=== PATIENT | male | born 1965 | race African-American/Black ===

== ENCOUNTER 2017-05-24 15:11 | Emergency (ER) | payer OTHER ==
[~2017-05-24] VITALS: Ht 185.4 cm; Wt 104.3 kg
--- NOTE | ~2017-05-24 | EKG ---
[place] [address] [place] [address] ELECTROCARDIOGRAM REPORT Name: VOLODYMYR LAMBERT Room #: DEP PATRIC Gonzalez#: [id number] Admission: 05/24/17 Attend Phys: Discharge: 05/24/17 Date of : 67 Report #: [id number] THIS REPORT FOR: //name// [facility] ED Test Date: 2017-05-24 Test Time: 15:59:00 Pat Name: VOLODYMYR LAMBERT Department: Room: Gender: Employee Wellness/Fitness Coordinator: [id number] : 1965 Requested By: Larry Verde Order Number: [id number] MD: Barney Platt Measurements Intervals [place] Rate: 86 P: 17 TX: 196 QRS: 20 QRSD: 134 T: 25 QT: 386 QTc: 462 Interpretive Statements Sinus rhythm Right ventricular conduction delay Leftward axis Baseline wander in lead(s) II,III,aVF No previous ECG available for comparison Electronically Signed On 05-25-2017 14:25:06 SAFE DEPOSIT CLERK by Barney Platt [email or web address] <ELECTRONICALLY SIGNED> By: Barney Platt MD, [facility] 05/25/17 1425 1559 1559 Barney Platt MD, FACC /EPI
[2017-05-24] MEDS ORDERED: BP MED (15:42)
[2017-05-24] MEDS ORDERED: IBUPROFEN 800800 M1 PO (15:42)
[2017-05-24 16:15] LABS: ABSOLUTE NEUTROPHILS 4.6 thou/uL (1.4-8.2); BASOPHILS 0.6 % (0.0-2.0); EOSINOPHILS 0.7 % (0.0-3.0); HEMATOCRIT 38.9 % (42.0-52.0); HEMOGLOBIN 13.2 gm/dL (14.0-18.0); MCH 29.1 pg (26.0-34.0); MCHC 33.8 g/dL (28.0-37.0); MONOCYTES 11.3 % (1.0-8.0); PLATELET COUNT 283 thou/uL (150-400); POLYS 55.4 % (36.0-66.0); RBC 4.53 mil/uL (4.50-6.00); RDW 14.1 % (10.5-14.5); WBC 8.4 thou/uL (4.0-11.0)
[2017-05-24 16:25] LABS: ANION GAP 11 mmol/L (7-16); BUN 16 mg/dL (7-18); CALCIUM 8.8 mg/dL (8.5-10.1); CHLORIDE 101 mmol/L (98-107); CO2 24 mmol/L (21-32); GLUCOSE 98 mg/dL (74-106); POTASSIUM 3.1 mmol/L (3.5-5.1); SODIUM 136 mmol/L (136-145)
[2017-05-24 16:34] LABS: ALBUMIN 3.3 g/dL (3.4-5.0); LIPASE 113 U/L (73-393); SGOT 43 U/L (15-37); SGPT 56 U/L (30-65); TOTAL BILIRUBIN 0.4 mg/dL (<0.1-1.0); TOTAL PROTEIN 7.7 g/dL (6.4-8.2); TROPONIN-I < 0.04 ng/mL (<0.06)
[2017-05-24] MEDS ORDERED: MOBIC15 MG PO (17:21)
== END 2017-05-24 17:33 | disposition home or self-care (01) ==
LOC: ER 15:11
PROVIDERS: Physician Assistant
DX: K42.9 Umbilical hernia without obstruction or gangrene (principal); F17.210 Nicotine dependence, cigarettes, uncomplicated; V89.2XXA Person injured in unspecified motor-vehicle accident, traffic, initial encounter; Y93.89 Activity, other specified; Y92.89 Other specified places as the place of occurrence of the external cause; Y99.8 Other external cause status

== ENCOUNTER 2018-06-01 09:47 | Emergency (ER) | payer OTHER ==
[~2018-06-01] VITALS: Ht 185.4 cm; Wt 108.9 kg
[~2018-06-01 09:47] MED LIST: BP MED; IBUPROFEN 800800 M1 PO; MOBIC15 MG PO
[2018-06-01 09:48] VITALS: BP 180/117
[2018-06-01] MEDS ORDERED: NORCO 5-325 TA1 EACH PO (10:46)
[2018-06-01] MEDS ORDERED: PREDNISONE 20 M20 MG PO (10:46)
== END 2018-06-01 11:01 | disposition home or self-care (01) ==
LOC: ER 09:47
DX: M51.26 Other intervertebral disc displacement, lumbar region (principal); F17.210 Nicotine dependence, cigarettes, uncomplicated; V79.19XA Passenger on bus injured in collision with other motor vehicles in nontraffic accident, initial encounter; Y93.89 Activity, other specified; Y92.89 Other specified places as the place of occurrence of the external cause; Y99.8 Other external cause status